=== PATIENT | male | born 1985 | race Caucasian/White ===

== ENCOUNTER → 2017-09-22 | Outpatient (CLI) | payer OTHER ==
--- NOTE | 2017-09-22 11:26 | KCIC ---
PQRS Compliance Statement: One or more of the following individualized dose reduction techniques were utilized for this examination: 1. Automated exposure control 2. Adjustment of the mA and/or kV according to patient size 3. Use of iterative reconstruction technique CT MAXILLOFACIAL WO CONTRAST Clinical Indication: Acute recurrent sinusitis, congestion. Comparison: None. TECHNIQUE: Helical CT imaging of the paranasal sinuses from the skull vertex through the maxilla is performed using [employer] protocol. Findings: There is minimal mucosal thickening in the right maxillary sinus inferiorly, thickness about 1 mm. There is minimal mucosal thickening inferiorly in the left maxillary sinus, diameter up to 4 mm. The frontal, ethmoid, and sphenoid sinuses are clear bilaterally. The mastoid air cells are aerated. No acute facial bone fracture. Bony nasal septum mildly deviates to the left. The ostiomeatal complexes are narrow but patent. Not protocoled for its evaluation, there is no obvious midline shift or mass effect in the brain. The globes and orbits are intact. IMPRESSION: Ostiomeatal complexes are patent. The paranasal sinuses are essentially clear. Electronically signed by: Brandon Owens MD (09/22/2017 11:24 AM) [id number]
== END | disposition home or self-care (01) ==
LOC: KCIC CT 10:57
PROVIDERS: ATTEND Otolaryngology
DX: J01.91 Acute recurrent sinusitis, unspecified (principal)
CPT/HCPCS: 70486

== ENCOUNTER 2017-10-11 05:57 | Day surgery (SDC) | payer OTHER ==
[2017-10-11] MEDS ORDERED: GELATIN SPONGE SIZE 100. (06:39)
[2017-10-11] MEDS: OXYMETAZOLINE 0.05% NASAL SPRAY 30ML BOTTLE. NS ×2 (06:40→07:36)
[2017-10-11] MEDS ORDERED: NEOMY/BACITR/POLYMYXIN OINT PACKET. TP ×2 (06:40)
[2017-10-11] MEDS: IV RINGERS,LACTATED 1000ML 1,000 ML IV (06:43)
[2017-10-11] MEDS ORDERED: HYDROmorphone 2 MG/ML VIAL IV (07:00)
[2017-10-11] MEDS ORDERED: ceFAZolin 2GM PREMIX 2 GM/50 ML BAG IV (07:00)
[2017-10-11] MEDS ORDERED: LIDOCAINE 1% PF 2 ML VIAL. ID (07:00)
[2017-10-11] MEDS ORDERED: fentaNYL PF VIAL 100 MCG/2 ML VIAL IV (07:00)
[2017-10-11] MEDS ORDERED: MORPHINE SULFATE 2 MG/ML DISP.SYRIN. IV (07:00)
[2017-10-11] MEDS ORDERED: ONDANSETRON PF 4 MG/2 ML VIAL. IV (07:00)
[2017-10-11] MEDS ORDERED: PROCHLORPERAZINE 10 MG/2 ML VIAL. IV (07:00)
[2017-10-11] MEDS ORDERED: LIDOCAINE 2% PF Vial for OR 5 ML VIAL. (07:20)
[2017-10-11] MEDS ORDERED: ROCURONIUM 50 MG/5 ML VIAL. (07:20)
[2017-10-11] MEDS ORDERED: PROPOFOL 20 ML IV ×2 (07:20→09:29)
[2017-10-11] MEDS ORDERED: ONDANSETRON PF 4 MG/2 ML VIAL. (07:20)
[2017-10-11] MEDS ORDERED: DEXAMETHASONE SOD PHOS 20 MG/5 ML VIAL. (07:20)
[2017-10-11] MEDS ORDERED: fentaNYL PF VIAL 100 MCG/2 ML VIAL ×4 (07:21→10:06)
[2017-10-11] MEDS ORDERED: MIDAZOLAM HCL/PF 2 MG/2 ML VIAL. (07:21)
[2017-10-11] MEDS: EPINEPHrine NASAL 30 MG/30 ML BOTTLE (07:36)
[2017-10-11] MEDS: LIDOCAINE 1%/EPI 1:100,000 20 ML VIAL. ×2 (07:36→07:49)
[2017-10-11] MEDS ORDERED: EPINEPHrine VIAL 30 MG/30 ML VIAL (07:58)
[2017-10-11] MEDS ORDERED: ESMOLOL 100 MG/10 ML VIAL. IV (08:00)
[2017-10-11] MEDS ORDERED: NEOSTIGMINE METHYLSULFATE 5 MG/5 ML SYRINGE. (10:08)
[2017-10-11] MEDS ORDERED: GLYCOPYRROLATE 1 MG/5 ML VIAL. (10:08)
[2017-10-11] MEDS ORDERED: DESFLURANE 61 TO 120 MINUTES IH (10:10)
[2017-10-11] MEDS ORDERED: SEVOFLURANE 16 TO 30 MINUTES. IH (10:10)
[2017-10-11] MEDS: fentaNYL PF VIAL 100 MCG/2 ML VIAL IV ×2 (11:02→11:17)
[2017-10-11] MEDS ORDERED: oxyCODONE/APAP 5/325 1 TAB TABLET PO (11:30)
[2017-10-11] MEDS: oxyCODONE/APAP 5/325 1 TAB TABLET PO (11:45)
== END 2017-10-11 12:44 | disposition home or self-care (01) ==
LOC: SURG 05:57
DX: J34.2 Deviated nasal septum (principal); J01.41 Acute recurrent pansinusitis; Z87.39 Personal history of other diseases of the musculoskeletal system and connective tissue; Z72.89 Other problems related to lifestyle
CPT/HCPCS: 30520; J0171; J0690; J1100; J2250; J2405; J2704; J2710; J3010; J3490; J7030; J7120

== ENCOUNTER → 2018-01-26 | Outpatient (CLI) | payer OTHER | END | disposition home or self-care (01) | LOC: KCIC CT 08:11 | DX: J32.9 Chronic sinusitis, unspecified (principal) | CPT/HCPCS: 70486 ==

== ENCOUNTER → 2019-11-04 | Outpatient (CLI) | payer OTHER ==
[2017-10-11 12:35] VITALS: BP 128/78
[~2019-11-04] MED LIST: LACT1CAP25 PO
--- NOTE | 2019-11-04 12:26 | RAD ---
CT MAXILLOFACIAL WO CONTRAST Indication: Recurrent sinusitis Comparison study: 01/26/2018. Technique: Noncontrast CT of the maxillofacial region was performed in the axial plane. Sagittal and coronal reconstructions were performed. 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 The maxillary, ethmoid, sphenoid, and frontal sinuses are clear. No air-fluid levels. No significant mucoperiosteal thickening. The visualized osseous structures are otherwise normal. The visualized orbits and globes are normal. The visualized brain parenchyma is normal in attenuation. IMPRESSION: 1. No evidence of inflammatory sinonasal disease. 2. Postsurgical changes of functional endoscopic sinus surgery. Electronically signed by: Timmy Brunner MD (11/04/2019 12:23 PM) [id number]
== END | disposition home or self-care (01) ==
LOC: CT 09:58
PROVIDERS: ATTEND Otolaryngology
DX: J01.91 Acute recurrent sinusitis, unspecified (principal)
CPT/HCPCS: 70486